=== PATIENT | female | born 1995 | race Caucasian/White ===

== ENCOUNTER 2016-09-27 22:26 | Emergency (ER) | payer OTHER ==
[2016-09-28] MEDS ORDERED: IBUPROFEN 800 MG TABLET PO ONE (02:33)
--- NOTE | 2016-09-28 02:37 | ER Document Report ---
ED Neck/Back Problem - General Chief Complaint: Back Pain Stated Complaint: BACK PAIN Mode of Arrival: Ambulatory Information source: Patient Notes: Patient is a 21-year-old female who presents to the ER today for pain over the right lateral ribs times one hour. Patient has no injury and states that it does hurt when she takes deep breaths but does not make her short of breath. She has no past medical history and is healthy otherwise. TRAVEL OUTSIDE OF THE [place] IN LAST 30 DAYS: No - Related Data Allergies/Adverse Reactions: No Known Allergies Allergy (Verified 02/08/16 09:31) Past Medical History - General Information source: Patient - Social History Smoking Status: Never Smoker Frequency of alcohol use: None Drug Abuse: None Family History: Reviewed & Not Pertinent Patient has suicidal ideation: No Patient has homicidal ideation: No Renal/ Medical History: Denies: Hx Peritoneal Dialysis Psychiatric Medical History: Reports: Hx Anxiety Past Surgical History: Reports: Hx Tonsillectomy - Immunizations Immunizations up to date: Yes Hx Diphtheria, Pertussis, Tetanus Vaccination: Yes Review of Systems - Review of Systems Constitutional: No symptoms reported EENT: No symptoms reported Cardiovascular: No symptoms reported Respiratory: See HPI Gastrointestinal: No symptoms reported Genitourinary: No symptoms reported Female Genitourinary: No symptoms reported Musculoskeletal: See HPI Skin: No symptoms reported Hematologic/Lymphatic: No symptoms reported Neurological/Psychological: No symptoms reported Physical Exam - Vital signs Vitals: Temp Pulse Resp BP Pulse Ox 98.0 F 98 16 135/77 H 100 09/27/16 23:10 09/27/16 23:10 09/27/16 23:10 09/27/16 23:10 09/27/16 23:10 - Notes Notes: PHYSICAL EXAMINATION: GENERAL: Well-appearing, texting on phone, and in no acute distress. HEAD: Atraumatic, normocephalic. EYES: Pupils equal round and reactive to light, extraocular movements intact, sclera anicteric, conjunctiva are normal. NECK: Normal range of motion, supple without lymphadenopathy LUNGS: CTAB and equal. No wheezes rales or rhonchi. HEART: Regular rate and rhythm without murmurs ABDOMEN: Soft, no tenderness. No guarding, no rebound BACK: no vertebral tenderness, normal ROM GI/: no CVA tenderness EXTREMITIES/MS: right side pain over ribs, Normal range of motion, no pitting edema. No cyanosis. NEUROLOGICAL: Cranial nerves grossly intact. Normal sensory/motor exams. PSYCH: Normal mood, normal affect. SKIN: Warm, Dry, normal turgor, no ecchymosis, rashes or lesions noted Course - Re-evaluation Re-evalutation: 09/28/16 02:36 Patient actually looks quite well, has no bruising over the ribs, no injury and is breathing at 100% on room air. Patient did take deep breaths without any pain on exam. She has no abdominal pain and no back pain at all, just in one specific spot on the right side. 09/28/16 03:03 Chest x-ray normal, negative for any pneumothorax, rib fractures, other abnormality. 09/28/16 03:05 - Vital Signs Vital signs: Temp Pulse Resp BP Pulse Ox 98.0 F 98 16 135/77 H 100 09/27/16 23:10 09/27/16 23:10 09/27/16 23:10 09/27/16 23:10 09/27/16 23:10 Discharge - Discharge Clinical Impression: Side pain Condition: Stable Disposition: HOME, SELF-CARE Instructions: Ice Packs ([facility]), Warm Packs ([facility]) Additional Instructions: Return immediately for any new or worsening symptoms. Follow up with primary care provider, call tomorrow to make followup appointment. Prescriptions: Cyclobenzaprine HCl [Flexeril 10 mg Tablet] 10 mg PO TIDP PRN #15 tab PRN Reason: Ibuprofen [Motrin 800 mg Tablet] 800 mg PO Q8H PRN #30 tab PRN Reason: Forms: Return to Work
[2016-09-28] MEDS ORDERED: CYCLOBENZAPRINE HCL 10 MG TABLET PO ONE (03:05)
[2016-09-28 03:47] VITALS: BP 132/77
== END 2016-09-28 03:24 | disposition home or self-care (01) ==
LOC: ER 22:26
DX: R10.9 Unspecified abdominal pain (principal); M54.9 Dorsalgia, unspecified; R07.81 Pleurodynia
CPT/HCPCS: 71020; 99283